=== PATIENT | female | born 1975 | race Caucasian/White ===

== ENCOUNTER 2019-02-03 08:36 | Inpatient (IN) | payer BC, OTHER ==
[~2019-02-03] VITALS: Ht 157.5 cm; Wt 62.4 kg
[~2019-02-03 08:36] MED LIST: CLIN300 PO; CLON1 PO; CYCL10 PO; IBUP800 PO; INDO50 PO; METF500 PO; METPRE4DP PO; OXYACE5T PO; PRED20 PO; Percocet 5-3251 EACH PO; SULTRIDS PO
[2019-02-03 08:58] LABS: BASOPHILS ABSOLUTE AUTO 0.01 K/mm3 (0.00-0.23); BASOPHILS PERCENT AUTO 0 % (0-2); EOSINOPHILS ABSOLUTE AUTO 0.01 K/mm3 (0.00-0.68); EOSINOPHILS PERCENT AUTO 0 % (0-6); Hematocrit 36.5 % (33.0-51.0); Hemoglobin 12.1 g/dL (11.5-16.0); IMMATURE GRAN ABSOLUTE AUTO 0.02 K/mm3 (0.00-0.10); IMMATURE GRAN PERCENT AUTO 0 % (0-1); LYMPHOCYTES ABSOLUTE AUTO 1.48 K/mm3 (0.84-5.20); LYMPHOCYTES PERCENT AUTO 21 % (21-46); MONOCYTES ABSOLUTE AUTO 0.34 K/mm3 (0.16-1.47); MONOCYTES PERCENT AUTO 5 % (4-13); Mean Corpuscular HGB 32.3 pg (26.0-34.0); Mean Corpuscular HGB Conc 33.2 g/dL (31.5-36.5); Mean Corpuscular Volume 97 fL (80-100); NEUTROPHILS ABSOLUTE AUTO 5.23 K/mm3 (1.96-9.15); NEUTROPHILS PERCENT AUTO 74 % (41-73); Platelet Count 258 K/mm3 (150-400); RDW Coefficient Variation 12.3 % (11.7-14.2); RDW Standard Deviation 44.3 fL (35.1-46.3); Red Blood Cell Count 3.75 M/mm3 (3.80-5.20); White Blood Cell Count 7.09 K/mm3 (4.00-11.30)
[2019-02-03 09:04] LABS: Source, Urine Voided
[2019-02-03 09:07] LABS: Bilirubin, Urine Neg (Neg); Blood, Urine 3+ (Neg); Glucose Qualitative, Urine Neg (Neg); Ketones, Urine 3+ (Neg); Leukocyte Esterase, Urine Neg (Neg); Nitrite, Urine Neg (Neg); Protein, Urine Neg (Neg); Specific Gravity, Urine 1.015 (1.003-1.022); Urobilinogen, Urine NORM (Normal)
[2019-02-03 09:12] LABS: Acetaminophen, Random <2.0 ug/mL (10.0-30.0); Alanine Aminotransfer (ALT/SGP 18 U/L (12-78); Albumin, Blood 3.9 g/dL (3.4-5.0); Albumin/Globulin Ratio 1.2 (0.8-1.8); Alk Phos 34 U/L (50-136); Anion Gap 7 mmol/L (6-16); Aspartate Aminotrans (AST/SGOT 7 U/L (12-37); Bilirubin, Total 0.5 mg/dL (0.1-1.0); Blood Urea Nitrogen 15 mg/dL (8-24); Bun/Creatinine Ratio 22.4 (12.0-20.0); CO2, Blood 24 mmol/L (21-32); Calcium, Blood 8.3 mg/dL (8.5-10.1); Chloride, Blood 111 mmol/L (98-108); Creatinine, Blood 0.67 mg/dL (0.40-1.00); Ethanol (Alcohol), Blood, Med <3 mg/dL; Globulin, Blood 3.3 g/dL (2.2-4.0); Glomerular Filtration Rate >60 (60-); Glucose, Blood 168 mg/dL (70-99); Potassium, Blood 3.1 mmol/L (3.5-5.5); Salicylate <1.7 mg/dL (2.8-20.0); Sodium, Blood 142 mmol/L (136-145); Total Protein, Blood 7.2 g/dL (6.4-8.2)
[2019-02-03 09:18] LABS: U Amphetamine Screen Not Detected; U Barbituate Screen Not Detected; U Benzodiazapine Screen Not Detected; U Buprenorphine Screen Not Detected; U Cannabinoids Screen DETECTED; U Cocaine Screen Not Detected; U Methadone Screen Not Detected; U Methamphetamine Screen Not Detected; U Opiates Screen Not Detected; U Oxycodone Screen Not Detected; U Phencyclidine Screen Not Detected; U Propoxyphene Screen Not Detected
[2019-02-03 09:22] LABS: Appearance, Urine Clear (Clear); Bacteria Rare /hpf; Color, Urine Yellow (P-Yellow); Squamous Epithelial Cells Mod /hpf (Few); White Blood Cells, Urine Not Seen /hpf (0-5)
[2019-02-03] MEDS ORDERED: PROGESTERONE (12:22)
--- NOTE | 2019-02-03 14:28 | NUR ---
ADMIT PT ARRIVED TO ICU 1 FROM ED. PT WAKES WHEN SOMEONE WALKS IN THE ROOM BUT OTHERWISE LAYS WITH HER EYES CLOSED. SHE IS IRRITABLE WITH STAFF, BUT COOPERATIVE. REVIEWED HOSPITAL HOLD RESTRICTIONS WITH PT AND FAMILY. PT IS TREMULOUS BUT SHE SAYS SHE ALWAYS HAS SOME TREMORS. SEIZURE PADS ON THE BED. 1:1 SITTER AT THE BEDSIDE FOR HIGH SUICIDE RISK.
--- NOTE | 2019-02-03 17:50 | NUR ---
SHIFT SUMMARY: PT HAS REMAINED A LITTLE DROWSY, LAYING WITH HER EYES CLOSED WHEN NO ONE IN THE ROOM BUT WAKES UP WHEN SOMEONE ENTERS THE ROOM. HER TREMORS ARE UNCHANGED. SHE IS ORIENTED, BUT STATES SHE FEELS A LITTLE CONFUSED AND LIKE SHE IS HAVING DIFFICULTY COMPREHENDING THINGS. SHE IS SR IN THE 80S, BP STABLE. LUNGS CLEAR, RA. SHE ATE A SMALL AMT OF DINNER. VOIDING, GETTING UP TO THE TOILET IN THE ROOM. PT CONTINUES TO EXPRESS THAT SHE DOES NOT WANT TO BE ALIVE. PT WAS GETTING ANXIOUS AND WORKED UP WITH EVEN MENTIONING HER FAMILY OR VISITORS SO VISITORS HAVE BEEN ONLY ONE AT A TIME AND PT HAS BEEN ABLE TO TOLERATE THAT BETTER. FREQUENTLY CHECKING WITH PT TO MAKE SURE SHE IS CALM WHILE VISITORS ARE PRESENT. CURRENTLY PT IS REQUESTING ONLY HER BOYFRIEND BE ALLOWED IN AND HE IS ACTING APPROPRIATELY. NO OTHER REQUESTS AT THIS TIME. CONTINUING TO MONITOR.
--- NOTE | 2019-02-03 19:15 | NUR ---
ASSUME CARE: REPORT RECIEVED FROM GAGE OFF GOING RN. MONITOR INTACT SHOWING SINUS RHYTHM HEART RATE 80'S. LUNG SOUNDS CLEAR RESPIRATIONS REGULAR AND EASY ON ROOM AIR SPO2 95-98%. ABDOMEN SOFT WITH BOWEL SOUNDS FOUR QUADS. SKIN WARM/ DRY /INTACT. NO EDEMA NOTED. PEDAL PULSES PRESENT. DOES NOT MAKE EYE CONTACT HOWEVER AROUSES EASILY WHEN ASKED IF CONTINUES TO WANT TO HARM HERSELF STATES "I JUST WANT TO SLEEP" DOES NOT ANSWER FURTHER QUESTIONS. CONTINUE TO MONITOR AND REPORT CHANGE IN PATIENT CONDITION. ONE TO ONE SITTER PRESENT.
--- NOTE | 2019-02-03 20:00 | NUR ---
REFUSES TO ANSWER FURTHER QUESTIONS FOR REASSESSMENT OF SUCICIDE RISK STATES "I JUST WANT TO GO TO SLEEP" TURNS AWAY FROM NURSE ANDCLOSES EYES . CONTINUE ONE TO ONE SITTER AND TO MONITOR AND REPORT CHANGE IN PATIENT CONDITION.
--- NOTE | 2019-02-03 22:00 | NUR ---
IV DRESSING TO L AC CHANGED. HAD BECOME DISCONECTED FROM THE HUB.IB SITE FLUSHED WITH GOOD BLOOD RETURN. CONTINUE TO MONITOR . COOPERATIVE TO CARES. HAVE BEEN SEVERAL PHONE CALLS FROM [facility]ERSONS STATING TO BE "FAMILY " AND REQUESTING INFORMATION RE PATIENT. EXPLAINED WAS NOT ABLE TO RELEASE MEDICAL INFORMATION AND RESTRICTED VISITATION AND PHONE USAGE CONTINUE TO MONITOR AND REPORT CHANGE IN PATIENT CONDITION
[2019-02-04 03:55] LABS: BASOPHILS ABSOLUTE AUTO 0.04 K/mm3 (0.00-0.23); BASOPHILS PERCENT AUTO 1 % (0-2); EOSINOPHILS ABSOLUTE AUTO 0.01 K/mm3 (0.00-0.68); EOSINOPHILS PERCENT AUTO 0 % (0-6); Hematocrit 35.1 % (33.0-51.0); Hemoglobin 11.5 g/dL (11.5-16.0); IMMATURE GRAN PERCENT AUTO 0 % (0-1); LYMPHOCYTES ABSOLUTE AUTO 3.35 K/mm3 (0.84-5.20); LYMPHOCYTES PERCENT AUTO 45 % (21-46); MONOCYTES ABSOLUTE AUTO 0.34 K/mm3 (0.16-1.47); MONOCYTES PERCENT AUTO 5 % (4-13); Mean Corpuscular HGB 32.4 pg (26.0-34.0); Mean Corpuscular HGB Conc 32.8 g/dL (31.5-36.5); Mean Corpuscular Volume 99 fL (80-100); Mean Platelet Volume 9.9 fL (9.1-12.4); NEUTROPHILS ABSOLUTE AUTO 3.72 K/mm3 (1.96-9.15); NEUTROPHILS PERCENT AUTO 50 % (41-73); Platelet Count 229 K/mm3 (150-400); RDW Coefficient Variation 12.2 % (11.7-14.2); RDW Standard Deviation 44.8 fL (35.1-46.3); Red Blood Cell Count 3.55 M/mm3 (3.80-5.20); White Blood Cell Count 7.46 K/mm3 (4.00-11.30)
[2019-02-04 04:16] LABS: Alanine Aminotransfer (ALT/SGP 16 U/L (12-78); Albumin, Blood 3.6 g/dL (3.4-5.0); Albumin/Globulin Ratio 1.2 (0.8-1.8); Alk Phos 32 U/L (50-136); Anion Gap 5 mmol/L (6-16); Aspartate Aminotrans (AST/SGOT 8 U/L (12-37); Bilirubin, Total 0.7 mg/dL (0.1-1.0); Blood Urea Nitrogen 8 mg/dL (8-24); Bun/Creatinine Ratio 11.4 (12.0-20.0); CO2, Blood 24 mmol/L (21-32); Calcium, Blood 8.1 mg/dL (8.5-10.1); Chloride, Blood 112 mmol/L (98-108); Globulin, Blood 2.9 g/dL (2.2-4.0); Glomerular Filtration Rate >60 (60-); Glucose, Blood 78 mg/dL (70-99); Potassium, Blood 3.7 mmol/L (3.5-5.5); Sodium, Blood 141 mmol/L (136-145); Total Protein, Blood 6.5 g/dL (6.4-8.2)
--- NOTE | 2019-02-04 05:24 | NUR ---
-SHIFT SUMMARY : RESTS QUIETLY WHEN UNDISTURBED MONITOR INTACT SHOWING SINUS RHYTHM HEART RATE 70'S. LUNG SOUNDS CLEAR RESPIRATIONS REGULAR AND EASY ON ROOM AIR. SPO2% ABDOMEN SOFT WITH BOWEL SOUNDS FOUR QUADS. GAIT TO TOILET STEADY VOIDS TICO URINE. COOPERATIVE TO CARES. SSLOM WDI NO EDEMA NOTED PEDAL PULSES PRESENT. SPOKE WITH POSION CONTROL EARLIER IN THE SHIFT . UP DATE GIVEN CONTINUE TO MONITOR AND REPORT CHANGE IN PATIENT CONDITIONL.
--- NOTE | 2019-02-04 08:00 | NUR ---
MEDICAL STATUS PT CHANGED TO MEDICAL STATUS NO TELEMETRY BY DR. JACKSON.
--- NOTE | 2019-02-04 09:30 | NUR ---
INITIAL ASSESSMENT REPORT RECEIVED, CARE ASSUMED AT 0700 AFTER REPORT FROM JOSUE STOREY. 1:1 SITTER PRESENT. DENIES CURRENT SUICIDAL IDEATION. PT BRIGHTENS WITH APPROACH BUT TEARFUL WHEN DISCUSSING CURRENT SITUATION AND EVENTS OF YESTERDAY. PT STATES, "I FELT LIKE I WAS WATCHING FROM THE OUTSIDE THE ENTIRE TIME." ENCOURAGED PATIENT TO CONTINUE PROCESSING HER EMOTIONS AND THOUGHTS. PT'S SUPPORT PERSON, BOYFRIEND AT BEDSIDE AND PROVIDING CONSOLE. VITALS STABLE. PT CALLING APPROPRIATELY FOR NEEDS.
--- NOTE | 2019-02-04 11:38 | NUR ---
PROVIDER VISIT MARILU[facility] MCGRATH NP AT BEDSIDE FOR ASSESSMENT
--- NOTE | 2019-02-04 11:45 | NUR ---
SUICIDE PRECAUTIONS DISCONTINUED PER [facility] MCGRATH NP SUICIDE PRECAUTIONS DISCONTINUED. PT DENIES SUICIDAL IDEATION. PT NO LONGER 1:1 SITTER OR ON REMOTE CAMERA MONITORING. PER [facility] NP, PT TO STAY ON HOLD UNTIL SHE CAN HAVE A CONVERSATION WITH FAMILY TO DISCUSS FURTHER PLANS FOR PATIENT.
--- NOTE | 2019-02-04 13:58 | NUR ---
PROVIDER/FAMILY VISIT MARILUZ MCGRATH NP AND FAMILY AT PT'S BEDSIDE FOR CONVERSATION REGARDING PLAN OF CARE.
--- NOTE | 2019-02-04 14:39 | NUR ---
UPDATE [facility] MCGRATH NP STATES PT'S HOLD CAN BE DROPPED AND PT SHOULD FOLLOW UP WITH OUTPATIENT COUNSELING SERVICES. DR. JACKSON CONTACTED BY [facility] NP AND PLAN IS FOR DISCHARGE TODAY. WAITING FOR DISCHARGE ORDERS FROM DR. JACKSON.
--- NOTE | 2019-02-04 16:20 | NUR ---
DISCHARGE DISCHARGE ORDER RECEIVED FROM DR. JACKSON. RELEASE OF HOLD PAPERWORK SIGNED BY DR. JACKSON. ONE COPY FAXED TO ER AND SECOND COPY IN PATIENT'S PAPER CHART. DISCHARGE INSTRUCTIONS PRINTED. PRIOR TO REVIEWING PACKET WITH PATIENT, PROMPTED HER WITH WHAT HER PLANS ARE. PT EXPLAINS SHE IS GOING TO TRY AND GET AN APPOINTMENT AT [facility] AND SHE IS GOING TO GO TO [facility] TOMORROW. PT STATES, "I DO NOT WANT THIS TO HAPPEN TO ME AGAIN." ALSO ENCOURAGED HER TO FOLLOW UP WITH PCP PER DR. JACKSON'S RECOMMENDATIONS. AFTER REVIEWING INFORMATION WITH PATIENT PROVIDED HER TIME TO REVIEW PACKET INDEPENDENTLY. DECLINES QUESTIONS. PT'S BOYFRIEND EXPLAINS THAT THEY ARE GOING TO GO HOME, MAKE A HEALTHY [employer] DINNER, AND HE IS GOING TO WORK ON "LOCKING STUFF UP FOR HER SAFETY." EXPLAINS THAT HE WILL BE WITH HER 24-7. PT'S SISTER ALSO AT BEDSIDE. VITALS STABLE AT DISCHARGE. PT DECLINES WHEELCHAIR OR STAND BY ASSIST TO PERSONAL VEHICLE. PT PERKY AND REPORTS BEING EXCITED TO BE HOME. BOYFRIEND AT SIDE UPON LEAVING ICU.
== END 2019-02-04 16:05 | disposition home or self-care (01) | DRG 918 ==
LOC: ER 08:36 → ICUE 10:28 → ICUW 10:28 → ICUE 11:45
PROVIDERS: Emergency Medicine; Nurse Practitioner Acute Care; ADMIT Internal Medicine
DX: T45.0X2A Poisoning by antiallergic and antiemetic drugs, intentional self-harm, initial encounter (principal); F33.9 Major depressive disorder, recurrent, unspecified; E87.6 Hypokalemia; E28.2 Polycystic ovarian syndrome; Z88.5 Allergy status to narcotic agent; Z88.0 Allergy status to penicillin; Z87.891 Personal history of nicotine dependence
CPT/HCPCS: 36415; 80053; 81001; 81025; 83735; 85025; 93005; 93010; 96365; 96366; 96367; 99285-25; G0480; J1650; J3480; J7030; J7070